=== PATIENT | female | born 1970 | race Caucasian/White ===

== ENCOUNTER 2016-11-25 14:43 | Emergency (ER) | payer BC ==
[~2016-11-25] VITALS: Ht 167.6 cm; Wt 68.2 kg
[2016-11-25 17:53] VITALS: BP 121/85
== END 2016-11-25 18:02 | disposition home or self-care (01) ==
LOC: EME 14:43
DX: R20.0 Anesthesia of skin (principal); Z98.890 Other specified postprocedural states; Z47.89 Encounter for other orthopedic aftercare
CPT/HCPCS: 99281; 99285

== ENCOUNTER 2017-11-15 10:24 | Day surgery (SDC) | payer BC ==
[~2017-11-15] VITALS: Ht 167.6 cm; Wt 79.4 kg
[~2017-11-15 10:24] MED LIST: ONE DAILY WOME1 EACH PO; SINGULAIR10 MG PO
[2017-11-15 17:15] VITALS: BP 113/70
[2017-11-15 18:30] VITALS: BP 112/62
== END 2017-11-15 19:13 | disposition home or self-care (01) ==
LOC: SDC 10:24
PROC: 0LUN0KZ Supplement Right Lower Leg Tendon with Nonautologous Tissue Substitute, Open Approach (ICD-10-PCS; principal; 2017-11-15)
DX: S86.311A Strain of muscle(s) and tendon(s) of peroneal muscle group at lower leg level, right leg, initial encounter (principal); T85.79XA Infection and inflammatory reaction due to other internal prosthetic devices, implants and grafts, initial encounter; Z90.5 Acquired absence of kidney; J45.909 Unspecified asthma, uncomplicated
CPT/HCPCS: C1762; J0131; J0690; J1170; J2250; J2405; J2710; J2765; J2795; J3010; J7643; S0020